=== PATIENT | male | born 1990 | race Caucasian/White ===

== ENCOUNTER → 2020-09-21 | Outpatient (CLI) | payer OTHER ==
--- NOTE | 2020-09-21 14:39 | REP ---
INDICATION: FAILED FOOT SURGERY FIFTH METATARSAL. COMPARISON: None. TECHNIQUE: 21.1 mCi of technetium 99 M MDP is injected and standard 3 phase bone scan imaging of the feet is acquired. FINDINGS: Anterior and posterior flow images show normal symmetric perfusion. Blood pool images show minimal hyperemia at the lateral aspect of the left midfoot. Delayed scan images including lateral and plantar views demonstrate a focus of mild hyperemia at the lateral aspect of the left midfoot in the expected location of the 5th metatarsal tarsal articulation or proximal 5th metatarsal. IMPRESSION: There is some mild hyperemia and increased uptake in the region of the proximal end of the 5th metatarsal of the left foot. Otherwise normal symmetric uptake. <Electronically signed by Surya Morales > 09/21/20 [id number]
== END ==
LOC: M RAD 11:07
PROVIDERS: ATTEND Podiatrist Foot & Ankle Surgery
DX: T81.9XXA Unspecified complication of procedure, initial encounter (principal)
CPT/HCPCS: 78315; A9503